=== PATIENT | male | born 1945 | race Caucasian/White ===

== ENCOUNTER 2019-12-06 10:02 | Inpatient (IN) | payer MEDICARE, BC ==
[~2019-12-06] VITALS: Ht 177.8 cm; Wt 86.7 kg
[2019-12-06] MEDS ORDERED: MULT-594 PO (10:38)
[2019-12-06] MEDS ORDERED: OMEG1000 PO (10:38)
[2019-12-06] MEDS ORDERED: CLOP75TA15 PO (10:38)
[2019-12-06] MEDS ORDERED: SODI454P4 PO (10:38)
[2019-12-06] MEDS ORDERED: FINA5TAB11 PO (10:38)
[2019-12-06] MEDS ORDERED: DIVA500T2 PO ×2 (10:38)
[2019-12-06] MEDS ORDERED: PANT40TA2 PO (10:38)
[2019-12-06] MEDS ORDERED: BUPR-319 PO (10:38)
[2019-12-06] MEDS ORDERED: ALFU10TA10 PO (10:38)
[2019-12-06] MEDS ORDERED: ATEN25TA PO (10:38)
[2019-12-06] MEDS ORDERED: TADA5TAB2 PO (10:38)
[2019-12-06] MEDS ORDERED: PRAV40TA3 PO (10:38)
[2019-12-06] MEDS ORDERED: ACETAMINOPHEN 325 MG TABLET PO ONE (11:15)
[2019-12-06 11:23] LABS: BASOPHILS % (AUTO) 0.4 % (0.0-2.0); EOSINOPHILS % (AUTO) 0.2 % (0.0-7.0); HEMOGLOBIN 7.8 g/dL (12.5-16.3); LYMPHOCYTES # (AUTO) 1.2 K/uL (20.0-40.0); LYMPHOCYTES % (AUTO) 12.7 % (20.5-51.5); MEAN CORPUSCULAR HEMOGLOBIN 31.2 uug (23.8-33.4); MEAN CORPUSCULAR HGB CONC 34 g/dL (32.5-36.3); MEAN CORPUSCULAR VOLUME 92.3 fL (73.0-96.2); MONOCYTES # (AUTO) 1.6 K/uL (2.0-10.0); NEUTROPHILS # (AUTO) 6.9 K/uL (1.8-8.9); NEUTROPHILS % (AUTO) 70.7 % (38.5-71.5); PLATELET COUNT (AUTO) 384 K/uL (152-348); WHITE BLOOD COUNT (AUTO) 9.7 K/uL (3.6-10.2)
[2019-12-06 11:25] LABS: RED BLOOD CELL COUNT(AUTO) 2.49 MIL/uL (4.06-5.63)
[2019-12-06 11:26] LABS: CARBON DIOXIDE 27 mmol/L (21-32); CHLORIDE 107 mmol/L (98-107); CREATININE 3.7 mg/dL (0.6-1.3); GLUCOSE 78 mg/dL (74-106); POTASSIUM 5.3 mmol/L (3.5-5.1); UREA NITROGEN, BLOOD 49 mg/dL (7-18)
[2019-12-06 11:32] LABS: ALANINE AMINOTRANSFERASE 49 U/L (16-63); ALKALINE PHOSPHATASE 139 U/L (50-136); ASPARTATE AMINOTRANSFERASE 64 U/L (15-37); BILIRUBIN,DIRECT 0.2 mg/dL (0.0-0.2); BILIRUBIN,TOTAL 0.7 mg/dL (0.2-1.0); TOTAL PROTEIN, SERUM 6.6 g/dL (6.4-8.2)
[2019-12-06 11:38] LABS: CREATINE KINASE, TOTAL 487 U/L (39-308)
[2019-12-06] MEDS ORDERED: NEOMY/BACITRA/POLYMYXIN B OINT UD PACKET TP ONE (12:10)
[2019-12-06] MEDS ORDERED: DEXTROSE 50% 50 ML DISP.SYRIN IV ONE (13:00)
[2019-12-06] MEDS ORDERED: INSULIN REGULAR, HUMAN 300 UNIT/3 ML VIAL IV ONE (13:00)
[2019-12-06] MEDS ORDERED: CALCIUM GLUCONATE IV 1 GM in IV DEXTROSE 5% 50 ML IV ONE (13:00)
[2019-12-06] MEDS ORDERED: TDAP DIPH,PERTUSS,TET VAC/PF 0.5 ML DISP.SYRIN IM ONE (13:15)
[2019-12-06 13:46] LABS: *BILIRUBIN,URIN NEGATIVE (NEGATIVE); *CLARITY,URINE CLEAR (CLEAR); *COLOR,URINE YELLOW (YELLOW); *KETONES,URINE NEGATIVE (NEGATIVE); LEUKOCYTE ESTERASE ,URINE NEGATIVE (NEGATIVE); NITRITE, URINE NEGATIVE (NEGATIVE); UGLUCOSE NEGATIVE (NEGATIVE)
[2019-12-06 13:49] LABS: *BLOOD, URINE TRACE (NEGATIVE)
[2019-12-06 15:02] VITALS: BP 148/64
[2019-12-06 15:15] LABS: BACTERIA,URINE NONE SEEN /HPF (NONE SEEN); SQUAMOUS EPITHELIAL CELL,UR FEW /HPF (NONE SEEN)
[2019-12-06] MEDS ORDERED: HYDROCODONE/APAP 5-325MG TABLET PO PRN (16:15)
[2019-12-06] MEDS ORDERED: ONDANSETRON 4 MG/2 ML VIAL IV PRN (16:15)
[2019-12-06] MEDS ORDERED: ZOLPIDEM 5 MG TABLET PO PRN (16:15)
[2019-12-06] MEDS ORDERED: ACETAMINOPHEN 325 MG TABLET PO PRN (16:15)
[2019-12-06] MEDS ORDERED: Z GUARD REMEDY PASTE 57 GM TUBE TOP PRN (16:15)
[2019-12-06] MEDS ORDERED: MAGNESIUM HYDROXIDE 30 ML LIQUID UDC PO PRN (16:15)
[2019-12-06 17:50] LABS: BAND % (MANUAL) 5 % (0-10); LYMPHOCYTES % (MANUAL) 15 % (20-40); NEUTROPHILS % (MANUAL) 66 % (42-75)
[2019-12-06 17:51] LABS: EOSINOPHILS % (MANUAL) 1 % (0-8); MONOCYTES % (MANUAL) 13 % (2-10)
[2019-12-06] MEDS: DIVALPROEX 250 MG TABLET.DR PO SCH (20:07)
[2019-12-06] MEDS: ATORVASTATIN 10 MG TABLET PO SCH (20:07)
[2019-12-06 20:12] VITALS: BP 122/65
[2019-12-07 00:03] VITALS: BP 124/60
[2019-12-07 04:12] VITALS: BP 138/64
[2019-12-07 06:49] LABS: BASOPHILS % (AUTO) 0.2 % (0.0-2.0); EOSINOPHILS # (AUTO) 0.1 K/uL (0.0-0.7); EOSINOPHILS % (AUTO) 0.9 % (0.0-7.0); HEMATOCRIT 21.7 % (36.7-47.1); LYMPHOCYTES # (AUTO) 1.6 K/uL (20.0-40.0); LYMPHOCYTES % (AUTO) 18.5 % (20.5-51.5); MEAN CORPUSCULAR HGB CONC 33 g/dL (32.5-36.3); MEAN CORPUSCULAR VOLUME 92.9 fL (73.0-96.2); MONOCYTES # (AUTO) 1.2 K/uL (2.0-10.0); MONOCYTES % (AUTO) 14.3 % (0.0-11.0); NEUTROPHILS # (AUTO) 5.6 K/uL (1.8-8.9); NEUTROPHILS % (AUTO) 66.1 % (38.5-71.5); PLATELET COUNT (AUTO) 395 K/uL (152-348); WHITE BLOOD COUNT (AUTO) 8.5 K/uL (3.6-10.2)
[2019-12-07 07:02] LABS: IRON, SERUM 28 ug/dL (50-175)
[2019-12-07 07:20] LABS: CARBON DIOXIDE 27 mmol/L (21-32); CHLORIDE 109 mmol/L (98-107); CHOLESTEROL 98 mg/dL (<200); CREATININE 3.1 mg/dL (0.6-1.3); FERRITIN 193 ng/mL (26-388); GLUCOSE 79 mg/dL (74-106); HDL CHOLESTEROL 30 mg/dL (40-60); PHOSPHOROUS 3.9 mg/dL (2.5-4.9); POTASSIUM 5.1 mmol/L (3.5-5.1); TRIGLYCERIDES 176 MG/DL (30-150); UREA NITROGEN, BLOOD 49 mg/dL (7-18)
[2019-12-07 07:31] LABS: CREATINE KINASE, TOTAL 179 U/L (39-308)
[2019-12-07 07:52] LABS: ABG BASE EXCESS -2.7 mmol/L; ABG HCO3 21.2 mmol/L; ABG PCO2 33.1 mmHg (35.0-45.0); ABG PH 7.425 (7.350-7.450); ABG PO2 78.4 mmHg (75.0-100.0); ABG SITE LEFT RADIAL; ABG TOTAL HEMOGLOBIN 8.9 G/dL (13.5-18.0); COHb 1.2 % (0.5-1.5); MetHb 0.3 % (0.0-1.5); O2Hb 93.8 % (94.0-97.0); VENT MODE Room Air
[2019-12-07] MEDS: DIVALPROEX 500 MG TABLET.DR PO SCH (08:01)
[2019-12-07] MEDS: FINASTERIDE 5 MG TABLET PO SCH (08:01)
[2019-12-07] MEDS: ALFUZOSIN HCL 10 MG TAB.SR.24H PO SCH (08:01)
[2019-12-07] MEDS: PANTOPRAZOLE SODIUM 40 MG TABLET.DR PO SCH (08:01)
[2019-12-07] MEDS: ATENOLOL 25 MG TABLET PO SCH (08:01)
[2019-12-07] MEDS: buPROPion XL 150 MG TAB.SR.24H PO SCH (08:01)
[2019-12-07 08:14] LABS: HEMOGLOBIN 7.2 g/dL (12.5-16.3); RED BLOOD CELL COUNT(AUTO) 2.34 MIL/uL (4.06-5.63)
[2019-12-07] MEDS ORDERED: Medication Not On Formulary EA (Tadalafil (Cialis) 5 MG) PO SCH (09:00)
[2019-12-07 11:29] VITALS: BP 118/57
[2019-12-07 12:09] LABS: *BILIRUBIN,URIN NEGATIVE (NEGATIVE); *CLARITY,URINE SLIGHTLY CLOUDY (CLEAR); *COLOR,URINE YELLOW (YELLOW); *KETONES,URINE NEGATIVE (NEGATIVE); LEUKOCYTE ESTERASE ,URINE NEGATIVE (NEGATIVE); NITRITE, URINE NEGATIVE (NEGATIVE); UGLUCOSE NEGATIVE (NEGATIVE)
[2019-12-07 12:14] LABS: *BLOOD, URINE TRACE (NEGATIVE)
[2019-12-07 12:29] LABS: *CREATININE,URINE 68.7 mg/dL (30-125); *URINE TOTAL PROTEIN RANDOM 48.1 mg/dL (<150/24HR)
[2019-12-07] MEDS: SOD FERRIC GLUC COMPLX/SUCROSE 125 MG in IV NORMAL SALINE 100 ML IV SCH (13:06)
[2019-12-07 15:08] VITALS: BP 116/54
[2019-12-07 18:15] LABS: BACTERIA,URINE NONE SEEN /HPF (NONE SEEN); SQUAMOUS EPITHELIAL CELL,UR FEW /HPF (NONE SEEN); WBC,URINE 0-3 /HPF (0-3)
[2019-12-07 18:16] LABS: URINE AMORPHOUS URATE FEW /HPF
[2019-12-07 20:12] VITALS: BP 115/45
[2019-12-07] MEDS: ATORVASTATIN 10 MG TABLET PO SCH (20:45)
[2019-12-07] MEDS: DIVALPROEX 250 MG TABLET.DR PO SCH (20:45)
[2019-12-08 04:06] VITALS: BP 136/57
[2019-12-08 07:53] LABS: BASOPHILS % (AUTO) 0.4 % (0.0-2.0); EOSINOPHILS # (AUTO) 0.1 K/uL (0.0-0.7); EOSINOPHILS % (AUTO) 1.1 % (0.0-7.0); HEMATOCRIT 23.5 % (36.7-47.1); HEMOGLOBIN 7.8 g/dL (12.5-16.3); LYMPHOCYTES # (AUTO) 1.8 K/uL (20.0-40.0); LYMPHOCYTES % (AUTO) 18.8 % (20.5-51.5); MEAN CORPUSCULAR HEMOGLOBIN 30.9 uug (23.8-33.4); MEAN CORPUSCULAR HGB CONC 33 g/dL (32.5-36.3); MEAN CORPUSCULAR VOLUME 93.4 fL (73.0-96.2); MONOCYTES # (AUTO) 1.5 K/uL (2.0-10.0); MONOCYTES % (AUTO) 15.2 % (0.0-11.0); NEUTROPHILS # (AUTO) 6.3 K/uL (1.8-8.9); NEUTROPHILS % (AUTO) 64.5 % (38.5-71.5); PLATELET COUNT (AUTO) 442 K/uL (152-348); RED BLOOD CELL COUNT(AUTO) 2.51 MIL/uL (4.06-5.63); WHITE BLOOD COUNT (AUTO) 9.8 K/uL (3.6-10.2)
[2019-12-08] MEDS: DIVALPROEX 500 MG TABLET.DR PO SCH (08:57)
[2019-12-08] MEDS: PANTOPRAZOLE SODIUM 40 MG TABLET.DR PO SCH (08:57)
[2019-12-08] MEDS: ALFUZOSIN HCL 10 MG TAB.SR.24H PO SCH (08:57)
[2019-12-08] MEDS: buPROPion XL 150 MG TAB.SR.24H PO SCH (08:58)
[2019-12-08] MEDS: FOLIC ACID 1 MG TABLET PO SCH (08:58)
[2019-12-08] MEDS: ATENOLOL 25 MG TABLET PO SCH (09:00)
[2019-12-08] MEDS: FINASTERIDE 5 MG TABLET PO SCH (09:00)
[2019-12-08 09:09] LABS: ALANINE AMINOTRANSFERASE 52 U/L (16-63); ALKALINE PHOSPHATASE 141 U/L (50-136); ASPARTATE AMINOTRANSFERASE 39 U/L (15-37); BILIRUBIN,TOTAL 0.5 mg/dL (0.2-1.0); CARBON DIOXIDE 25 mmol/L (21-32); CHLORIDE 107 mmol/L (98-107); CREATININE 2.9 mg/dL (0.6-1.3); FERRITIN 301 ng/mL (26-388); GLUCOSE 85 mg/dL (74-106); MAGNESIUM 2.2 mg/dL (1.8-2.4); PHOSPHOROUS 3.5 mg/dL (2.5-4.9); TOTAL PROTEIN, SERUM 6.3 g/dL (6.4-8.2); UREA NITROGEN, BLOOD 50 mg/dL (7-18)
[2019-12-08 12:00] VITALS: BP 114/34
[2019-12-08] MEDS: SOD FERRIC GLUC COMPLX/SUCROSE 125 MG in IV NORMAL SALINE 100 ML IV SCH (15:02)
[2019-12-08 16:02] LABS: NEUTROPHILS % (MANUAL) 69 % (42-75)
[2019-12-08 16:03] LABS: BASOPHILS % (MANUAL) 0 % (0-2); EOSINOPHILS % (MANUAL) 1 % (0-8); LYMPHOCYTES % (MANUAL) 13 % (20-40); MONOCYTES % (MANUAL) 17 % (2-10)
[2019-12-08 16:05] VITALS: BP 124/74
[2019-12-08 20:26] VITALS: BP 143/62
[2019-12-08] MEDS: DIVALPROEX 250 MG TABLET.DR PO SCH (20:30)
[2019-12-08] MEDS: ATORVASTATIN 10 MG TABLET PO SCH (20:30)
[2019-12-09 04:40] VITALS: BP 107/88
[2019-12-09 08:00] VITALS: BP 150/44
[2019-12-09] MEDS: ALFUZOSIN HCL 10 MG TAB.SR.24H PO SCH (08:09)
[2019-12-09] MEDS: DIVALPROEX 500 MG TABLET.DR PO SCH (08:09)
[2019-12-09] MEDS: FOLIC ACID 1 MG TABLET PO SCH (08:09)
[2019-12-09] MEDS: buPROPion XL 150 MG TAB.SR.24H PO SCH (08:09)
[2019-12-09] MEDS: FINASTERIDE 5 MG TABLET PO SCH (08:09)
[2019-12-09] MEDS: PANTOPRAZOLE SODIUM 40 MG TABLET.DR PO SCH (08:09)
[2019-12-09] MEDS: ATENOLOL 25 MG TABLET PO SCH (08:10)
[2019-12-09 11:15] LABS: *OCCULT BLOOD STOOL NEGATIVE (NEGATIVE)
[2019-12-09] MEDS: SOD FERRIC GLUC COMPLX/SUCROSE 125 MG in IV NORMAL SALINE 100 ML IV SCH (13:59)
[2019-12-09 15:54] VITALS: BP 122/49
[2019-12-09 20:03] VITALS: BP 133/57
[2019-12-09] MEDS: DIVALPROEX 250 MG TABLET.DR PO SCH (20:16)
[2019-12-09] MEDS: ATORVASTATIN 10 MG TABLET PO SCH (20:17)
[2019-12-10 04:50] VITALS: BP 149/66
[2019-12-10 06:56] LABS: BASOPHILS # (AUTO) 0.1 K/uL (0.0-8.0); BASOPHILS % (AUTO) 0.6 % (0.0-2.0); EOSINOPHILS # (AUTO) 0.1 K/uL (0.0-0.7); EOSINOPHILS % (AUTO) 1.1 % (0.0-7.0); HEMATOCRIT 24.1 % (36.7-47.1); HEMOGLOBIN 7.8 g/dL (12.5-16.3); LYMPHOCYTES # (AUTO) 1.9 K/uL (20.0-40.0); LYMPHOCYTES % (AUTO) 16.9 % (20.5-51.5); MEAN CORPUSCULAR HEMOGLOBIN 30.5 uug (23.8-33.4); MEAN CORPUSCULAR HGB CONC 33 g/dL (32.5-36.3); MEAN CORPUSCULAR VOLUME 93.7 fL (73.0-96.2); MONOCYTES # (AUTO) 1.2 K/uL (2.0-10.0); MONOCYTES % (AUTO) 11.1 % (0.0-11.0); NEUTROPHILS # (AUTO) 7.9 K/uL (1.8-8.9); NEUTROPHILS % (AUTO) 70.3 % (38.5-71.5); PLATELET COUNT (AUTO) 520 K/uL (152-348); RED BLOOD CELL COUNT(AUTO) 2.58 MIL/uL (4.06-5.63); WHITE BLOOD COUNT (AUTO) 11.2 K/uL (3.6-10.2)
[2019-12-10 07:12] LABS: CARBON DIOXIDE 24 mmol/L (21-32); CHLORIDE 108 mmol/L (98-107); CREATININE 2.8 mg/dL (0.6-1.3); GLUCOSE 78 mg/dL (74-106); PHOSPHOROUS 4.3 mg/dL (2.5-4.9); POTASSIUM 5.4 mmol/L (3.5-5.1); UREA NITROGEN, BLOOD 53 mg/dL (7-18)
[2019-12-10 08:11] LABS: *IMMUNOGLOBULIN G, SERUM 531 mg/dL (603-1613); IMMUNOGLOBULIN A, SERUM 127 mg/dL (61-437); IMMUNOGLOBULIN M, SERUM 79 mg/dL (15-143)
[2019-12-10] MEDS: FINASTERIDE 5 MG TABLET PO SCH (08:18)
[2019-12-10] MEDS: FOLIC ACID 1 MG TABLET PO SCH (08:18)
[2019-12-10] MEDS: DIVALPROEX 500 MG TABLET.DR PO SCH (08:19)
[2019-12-10] MEDS: buPROPion XL 150 MG TAB.SR.24H PO SCH (08:25)
[2019-12-10] MEDS: ATENOLOL 25 MG TABLET PO SCH (08:25)
[2019-12-10] MEDS: PANTOPRAZOLE SODIUM 40 MG TABLET.DR PO SCH (08:26)
[2019-12-10] MEDS: ALFUZOSIN HCL 10 MG TAB.SR.24H PO SCH (08:28)
[2019-12-10] MEDS ORDERED: LIDOCAINE HCL 1% 20 ML VIAL ONE (08:50)
[2019-12-10] MEDS ORDERED: NALOXONE 2 MG/2 ML SYRINGE IV PRN (09:30)
[2019-12-10] MEDS ORDERED: FENTANYL CITRATE 100 MCG/2 ML AMPUL IV PRN (09:30)
[2019-12-10] MEDS ORDERED: MIDAZOLAM HCL 2 MG/2 ML VIAL IV PRN (09:30)
[2019-12-10 13:00] VITALS: BP 133/60
[2019-12-10] MEDS: SOD FERRIC GLUC COMPLX/SUCROSE 125 MG in IV NORMAL SALINE 100 ML IV SCH (13:56)
[2019-12-10] MEDS: NEPRO (VANILLA) 237 ML CAN PO SCH (16:46)
[2019-12-10 20:00] VITALS: BP 109/50
[2019-12-10] MEDS: DIVALPROEX 250 MG TABLET.DR PO SCH (20:40)
[2019-12-10] MEDS: ATORVASTATIN 10 MG TABLET PO SCH (20:40)
[2019-12-11 04:00] VITALS: BP 114/53
[2019-12-11 07:07] LABS: A/G RATIO 0.8 (0.7-1.7); ALBUMIN 2.4 g/dL (2.9-4.4); ALPHA-1-GLOBULIN 0.6 g/dL (0.0-0.4); ALPHA-2-GLOBULIN 1.1 g/dL (0.4-1.0); GAMMA GLOBULIN 0.4 g/dL (0.4-1.8); M-SPIKE Not Observed g/dL (Not Observed)
[2019-12-11 07:30] VITALS: BP 126/60
[2019-12-11 08:06] LABS: A/G RATIO 0.7 (0.7-1.7); ALBUMIN 2.3 g/dL (2.9-4.4); ALPHA-1-GLOBULIN 0.4 g/dL (0.0-0.4); ALPHA-2-GLOBULIN 1.1 g/dL (0.4-1.0); BETA GLOBULIN 1.2 g/dL (0.7-1.3); GAMMA GLOBULIN 0.5 g/dL (0.4-1.8); GLOBULIN, TOTAL 3.2 g/dL (2.2-3.9); M-SPIKE Not Observed g/dL (Not Observed)
[2019-12-11 08:13] LABS: ALANINE AMINOTRANSFERASE 42 U/L (16-63); ALKALINE PHOSPHATASE 176 U/L (50-136); ASPARTATE AMINOTRANSFERASE 32 U/L (15-37); BILIRUBIN,TOTAL 0.5 mg/dL (0.2-1.0); CARBON DIOXIDE 24 mmol/L (21-32); CHLORIDE 109 mmol/L (98-107); CREATININE 2.8 mg/dL (0.6-1.3); GLUCOSE 75 mg/dL (74-106); MAGNESIUM 2.2 mg/dL (1.8-2.4); PHOSPHOROUS 4.9 mg/dL (2.5-4.9); POTASSIUM 5.5 mmol/L (3.5-5.1); TOTAL PROTEIN, SERUM 5.9 g/dL (6.4-8.2); UREA NITROGEN, BLOOD 61 mg/dL (7-18)
[2019-12-11 08:16] LABS: BASOPHILS % (AUTO) 0.2 % (0.0-2.0); EOSINOPHILS # (AUTO) 0.2 K/uL (0.0-0.7); EOSINOPHILS % (AUTO) 1.4 % (0.0-7.0); HEMATOCRIT 23.4 % (36.7-47.1); HEMOGLOBIN 7.6 g/dL (12.5-16.3); LYMPHOCYTES # (AUTO) 2.2 K/uL (20.0-40.0); MEAN CORPUSCULAR HEMOGLOBIN 30.8 uug (23.8-33.4); MEAN CORPUSCULAR HGB CONC 33 g/dL (32.5-36.3); MEAN CORPUSCULAR VOLUME 94.6 fL (73.0-96.2); MONOCYTES # (AUTO) 1.4 K/uL (2.0-10.0); MONOCYTES % (AUTO) 11.9 % (0.0-11.0); NEUTROPHILS # (AUTO) 7.8 K/uL (1.8-8.9); NEUTROPHILS % (AUTO) 67.5 % (38.5-71.5); PLATELET COUNT (AUTO) 474 K/uL (152-348); WHITE BLOOD COUNT (AUTO) 11.6 K/uL (3.6-10.2)
[2019-12-11] MEDS: DIVALPROEX 500 MG TABLET.DR PO SCH (08:17)
[2019-12-11] MEDS: ALFUZOSIN HCL 10 MG TAB.SR.24H PO SCH (08:17)
[2019-12-11] MEDS: FINASTERIDE 5 MG TABLET PO SCH (08:17)
[2019-12-11] MEDS: buPROPion XL 150 MG TAB.SR.24H PO SCH (08:18)
[2019-12-11] MEDS: ATENOLOL 25 MG TABLET PO SCH (08:18)
[2019-12-11] MEDS: FOLIC ACID 1 MG TABLET PO SCH (08:18)
[2019-12-11] MEDS: PANTOPRAZOLE SODIUM 40 MG TABLET.DR PO SCH (08:18)
[2019-12-11] MEDS: NEPRO (VANILLA) 237 ML CAN PO SCH ×2 (08:18→15:56)
[2019-12-11 08:40] LABS: RED BLOOD CELL COUNT(AUTO) 2.47 MIL/uL (4.06-5.63)
[2019-12-11] MEDS ORDERED: SODIUM POLYSTYRENE SULFONATE 15 G/60 ML LIQUID UDC PO ONE (12:30)
[2019-12-11] MEDS: SOD FERRIC GLUC COMPLX/SUCROSE 125 MG in IV NORMAL SALINE 100 ML IV SCH (13:52)
[2019-12-11] MEDS ORDERED: Nepro PO (15:09)
[2019-12-11] MEDS ORDERED: ZOLP5TAB8 PO (15:09)
[2019-12-11] MEDS ORDERED: MENT71OI TOP (15:09)
[2019-12-11] MEDS ORDERED: Folic Acid PO (15:09)
[2019-12-11 15:53] VITALS: BP 121/50
== END 2019-12-11 21:03 | DRG 180 ==
LOC: ER 10:02 → TELE3 14:04 → MEDSURG3 12-07 17:36
PROVIDERS: ADMIT Internal Medicine; ATTEND Internal Medicine
PROC: 0BDC4ZX Extraction of Right Upper Lung Lobe, Percutaneous Endoscopic Approach, Diagnostic (ICD-10-PCS; principal; 2019-12-10)
DX: C34.11 Malignant neoplasm of upper lobe, right bronchus or lung (principal); E43 Unspecified severe protein-calorie malnutrition; G92 Toxic encephalopathy; N17.0 Acute kidney failure with tubular necrosis; S37.012A Minor contusion of left kidney, initial encounter; K92.2 Gastrointestinal hemorrhage, unspecified; F17.210 Nicotine dependence, cigarettes, uncomplicated; E78.5 Hyperlipidemia, unspecified; E87.5 Hyperkalemia; F39 Unspecified mood [affective] disorder; I67.2 Cerebral atherosclerosis; I73.9 Peripheral vascular disease, unspecified; J44.9 Chronic obstructive pulmonary disease, unspecified; M19.90 Unspecified osteoarthritis, unspecified site; M20.42 Other hammer toe(s) (acquired), left foot; M20.41 Other hammer toe(s) (acquired), right foot; N18.9 Chronic kidney disease, unspecified; W19.XXXA Unspecified fall, initial encounter; Y93.9 Activity, unspecified; R74.0 Nonspecific elevation of levels of transaminase and lactic acid dehydrogenase [LDH]; N40.0 Benign prostatic hyperplasia without lower urinary tract symptoms; E66.9 Obesity, unspecified; Z68.27 Body mass index [BMI] 27.0-27.9, adult; S81.812A Laceration without foreign body, left lower leg, initial encounter; I12.9 Hypertensive chronic kidney disease with stage 1 through stage 4 chronic kidney disease, or unspecified chronic kidney disease; R19.5 Other fecal abnormalities; Z87.820 Personal history of traumatic brain injury; M84.48XS Pathological fracture, other site, sequela; M51.36 Other intervertebral disc degeneration, lumbar region; D50.0 Iron deficiency anemia secondary to blood loss (chronic); D63.1 Anemia in chronic kidney disease; Y92.89 Other specified places as the place of occurrence of the external cause; R29.6 Repeated falls
CPT/HCPCS: 36415; 36600; 70030-TC; 70450; 71045; 71250; 72125; 73020; 76770; 82784; 82803; 83550; 83735; 83970; 84100; 84155; 84156; 84165; 84300; 84443; 85025; 85730; 86334; 86850; 86900; 86901; 88329-TC; 88341; 88342; 90715; 93307; A4663; C1758; G0378; J0610; J1815; J2250; J2310; J2916; J3010; J3490; J7050; J7060; J8499

== ENCOUNTER 2019-12-11 21:11 | Inpatient (IN) | payer MEDICARE, BC ==
[~2019-12-11] VITALS: Ht 177.8 cm; Wt 84.5 kg
--- NOTE | 2019-12-11 20:00 | NUR ---
Admitted @ beginning of shift from med surg a 74 yr old male with admitting diagnosis s/p mechanical fall. V/S stable on room air saturating @ 98%. Pt received in bed asleep, easily arousalable AOx3-4, forgetful. No s/s of distress or SOB noted. Denied SOB or distress at this time. Denies any pain or discomfort. Admitting orders complete, Dr. Shearer and contact lens blocker and cutter doctor notified for admitting orders and med recon. Noted to have some L elbow laceration, L lower leg wound/laceration, L. hand scab.All needs attended to promptly. Safety measures in place. Call light within reach. Bed low and locked in position. Bed alarm on. Will continue with the plan of care. will continue rehab plan of care.
[~2019-12-11 21:11] MED LIST: ALFU10TA10 PO; ATEN25TA PO; BUPR-319 PO; CLOP75TA15 PO; DIVA500T2 PO; FINA5TAB11 PO; Folic Acid PO; MENT71OI TOP; MULT-594 PO; Nepro PO; OMEG1000 PO; PANT40TA2 PO; PRAV40TA3 PO; SODI454P4 PO; TADA5TAB2 PO; ZOLP5TAB8 PO
[2019-12-11 21:24] VITALS: BP 145/67
[2019-12-11] MEDS ORDERED: Z GUARD REMEDY PASTE 57 GM TUBE TOP PRN ×2 (22:15→23:30)
[2019-12-11] MEDS ORDERED: ZOLPIDEM 5 MG TABLET PO PRN (23:30)
[2019-12-12 04:51] VITALS: BP 145/70
--- NOTE | 2019-12-12 06:33 | NUR ---
Pt in bed asleep AOx2, on RA denied SOB or distress at this time. wound care and Dressings on wounds in place, pictures taken and placed in chart. Denied any pain at this time. Safety precautions in place. Bed locked in lowest position with siderails 2x up. Call light and phone within reach. will endorse report to oncoming nurse.
[2019-12-12 08:00] VITALS: BP 129/70
[2019-12-12] MEDS: OMEGA-3 FATTY ACIDS/FISH OIL CAPSULE PO SCH (08:57)
[2019-12-12] MEDS: FINASTERIDE 5 MG TABLET PO SCH (08:57)
[2019-12-12] MEDS: CLOPIDOGREL 75 MG TABLET PO SCH (08:57)
[2019-12-12] MEDS: DIVALPROEX 500 MG TABLET.DR PO SCH (08:57)
[2019-12-12] MEDS: PANTOPRAZOLE SODIUM 40 MG TABLET.DR PO SCH (09:00)
[2019-12-12] MEDS: buPROPion XL 150 MG TAB.SR.24H PO SCH (09:01)
[2019-12-12] MEDS: FOLIC ACID 1 MG TABLET PO SCH (09:01)
[2019-12-12] MEDS: MULTIVITAMINS,THERAPEUTIC TABLET PO SCH (09:01)
[2019-12-12] MEDS: ALFUZOSIN HCL 10 MG TAB.SR.24H PO SCH (09:01)
[2019-12-12] MEDS: NEPRO (VANILLA) 237 ML CAN PO SCH ×2 (09:01→17:48)
[2019-12-12] MEDS: ATENOLOL 25 MG TABLET PO SCH (09:05)
[2019-12-12 15:54] VITALS: BP 121/78
--- NOTE | 2019-12-12 18:03 | NUR ---
Patient started therapy for increase strenght and increase endurance. tolerated well. not in distress. Patient no complaint of pain/discomfort as of this time. will continue monitor
[2019-12-12 20:09] VITALS: BP 111/74
[2019-12-12 20:16] VITALS: BP 109/61
[2019-12-12] MEDS: DIVALPROEX 250 MG TABLET.DR PO SCH (20:32)
[2019-12-12] MEDS: ATORVASTATIN 10 MG TABLET PO SCH (20:34)
--- NOTE | 2019-12-12 22:01 | NUR ---
PATIENT IS IN BED, ALERT AND VERBALLY RESPONSIVE. AFEBRILE NO RESPIRATORY DISTRESS. NO COMPLAINTS OF PAIN. RECEIVED DUE MEDICATIONS. FALL AND SAFETY PRECAUTIONS OBSERVED.
[2019-12-13 04:52] VITALS: BP 133/55
--- NOTE | 2019-12-13 06:26 | NUR ---
NO CHANGES OBSERVED DURING THE NIGHT. PATIENT SLEPT WELL DURING THE NIGHT. ALL NEEDS ATTENDED AND ANTICIPATED. FALL AND SAFETY PRECAUTIONS OBSERVED.
[2019-12-13 06:46] LABS: BASOPHILS % (AUTO) 0.4 % (0.0-2.0); EOSINOPHILS # (AUTO) 0.2 K/uL (0.0-0.7); EOSINOPHILS % (AUTO) 1.4 % (0.0-7.0); HEMATOCRIT 25.4 % (36.7-47.1); HEMOGLOBIN 8.3 g/dL (12.5-16.3); LYMPHOCYTES # (AUTO) 2.5 K/uL (20.0-40.0); LYMPHOCYTES % (AUTO) 22.8 % (20.5-51.5); MEAN CORPUSCULAR HGB CONC 33 g/dL (32.5-36.3); MEAN CORPUSCULAR VOLUME 94.8 fL (73.0-96.2); MONOCYTES # (AUTO) 1.4 K/uL (2.0-10.0); MONOCYTES % (AUTO) 13.1 % (0.0-11.0); NEUTROPHILS # (AUTO) 6.7 K/uL (1.8-8.9); NEUTROPHILS % (AUTO) 62.3 % (38.5-71.5); PLATELET COUNT (AUTO) 445 K/uL (152-348); RED BLOOD CELL COUNT(AUTO) 2.68 MIL/uL (4.06-5.63); WHITE BLOOD COUNT (AUTO) 10.8 K/uL (3.6-10.2)
[2019-12-13 06:47] LABS: ALANINE AMINOTRANSFERASE 31 U/L (16-63); ALKALINE PHOSPHATASE 148 U/L (50-136); ASPARTATE AMINOTRANSFERASE 24 U/L (15-37); BILIRUBIN,TOTAL 0.4 mg/dL (0.2-1.0); CARBON DIOXIDE 23 mmol/L (21-32); CHLORIDE 109 mmol/L (98-107); CREATININE 2.5 mg/dL (0.6-1.3); GLUCOSE 85 mg/dL (74-106); PHOSPHOROUS 4.4 mg/dL (2.5-4.9); POTASSIUM 4.9 mmol/L (3.5-5.1); TOTAL PROTEIN, SERUM 5.9 g/dL (6.4-8.2); UREA NITROGEN, BLOOD 50 mg/dL (7-18)
[2019-12-13 08:00] VITALS: BP 151/63
[2019-12-13] MEDS: FINASTERIDE 5 MG TABLET PO SCH (08:44)
[2019-12-13] MEDS: OMEGA-3 FATTY ACIDS/FISH OIL CAPSULE PO SCH (08:44)
[2019-12-13] MEDS: CLOPIDOGREL 75 MG TABLET PO SCH (08:44)
[2019-12-13] MEDS: FOLIC ACID 1 MG TABLET PO SCH (08:44)
[2019-12-13] MEDS: DIVALPROEX 500 MG TABLET.DR PO SCH (08:45)
[2019-12-13] MEDS: ATENOLOL 25 MG TABLET PO SCH (08:45)
[2019-12-13] MEDS: MULTIVITAMINS,THERAPEUTIC TABLET PO SCH (08:45)
[2019-12-13] MEDS: ALFUZOSIN HCL 10 MG TAB.SR.24H PO SCH (08:45)
[2019-12-13] MEDS: PANTOPRAZOLE SODIUM 40 MG TABLET.DR PO SCH (08:45)
[2019-12-13] MEDS: buPROPion XL 150 MG TAB.SR.24H PO SCH (08:45)
[2019-12-13] MEDS: NEPRO (VANILLA) 237 ML CAN PO SCH ×2 (08:51→18:05)
[2019-12-13 15:16] VITALS: BP 117/65
--- NOTE | 2019-12-13 18:40 | NUR ---
Patient remains alert, oriented x 3, not in any form of distress, on room air. He denies any pain or discomfort. Patient compliant with medications and tolerated well. Assisted with his needs promptly. Patient participated with PT, OT and ST and tolerated. Call light and frequently used items placed within patient's reach. Patient stated he will tell his caregiver to bring his home medication Cialis. Will endorse accordingly.
[2019-12-13] MEDS: DIVALPROEX 250 MG TABLET.DR PO SCH (20:34)
[2019-12-13] MEDS: ATORVASTATIN 10 MG TABLET PO SCH (20:34)
[2019-12-13 21:09] VITALS: BP 126/64
--- NOTE | 2019-12-13 22:43 | NUR ---
Received resting in bed. AAO x3. No acute distress noted. Denies pain/ discomfort. Due meds given as ordered. Safety measures maintained. Call light and personal items within reach. Will continue to monitor.
[2019-12-14 05:38] VITALS: BP 117/68
[2019-12-14 07:28] LABS: FERRITIN 1207 ng/mL (26-388)
[2019-12-14 07:30] VITALS: BP 126/76
[2019-12-14 07:35] LABS: IRON, SERUM 23 ug/dL (50-175)
[2019-12-14] MEDS: ATENOLOL 25 MG TABLET PO SCH (09:00)
[2019-12-14] MEDS: FINASTERIDE 5 MG TABLET PO SCH (09:03)
[2019-12-14] MEDS: MULTIVITAMINS,THERAPEUTIC TABLET PO SCH (09:03)
[2019-12-14] MEDS: FOLIC ACID 1 MG TABLET PO SCH (09:03)
[2019-12-14] MEDS: PANTOPRAZOLE SODIUM 40 MG TABLET.DR PO SCH (09:03)
[2019-12-14] MEDS: DIVALPROEX 500 MG TABLET.DR PO SCH (09:03)
[2019-12-14] MEDS: buPROPion XL 150 MG TAB.SR.24H PO SCH (09:04)
[2019-12-14] MEDS: CLOPIDOGREL 75 MG TABLET PO SCH (09:04)
[2019-12-14] MEDS: ALFUZOSIN HCL 10 MG TAB.SR.24H PO SCH (09:04)
[2019-12-14] MEDS: OMEGA-3 FATTY ACIDS/FISH OIL CAPSULE PO SCH (09:04)
[2019-12-14] MEDS: NEPRO (VANILLA) 237 ML CAN PO SCH ×2 (09:20→17:30)
--- NOTE | 2019-12-14 11:54 | NUR ---
WOUND CARE CONSULT: PT PRESENTS WITH LEFT ARM SKIN TEAR AND LEFT LOWER LEG WOUND, PRESENT ON ADMISSION. RECOMMENDATIONS MADE FOR SKIN PROTECTION AND WOUND CARE OF ARM WOUND. RECOMMEND DPM CONSULT FOR LOWER LEG WOUND. DR BHATT NOTIFIED OF CONSULT REQUEST. CURRENT VALE SCORE IS 17. WILL SEE PRN. ALCOCER IN AGREEMENT WITH PLAN OF CARE. Addendum: 12/14/19 at 1155 by ОЛЬГА KONG RN Amended: Links added.
--- NOTE | 2019-12-14 13:22 | NUR ---
INTERDISCIPLINARY TEAM CONFERENCE
--- NOTE | 2019-12-14 14:28 | NUR ---
INDIVIDUALIZED PLAN OF CARE
[2019-12-14 15:48] VITALS: BP 107/59
[2019-12-14] MEDS: ATORVASTATIN 10 MG TABLET PO SCH (20:11)
[2019-12-14] MEDS: DIVALPROEX 250 MG TABLET.DR PO SCH (20:11)
[2019-12-14 21:07] VITALS: BP 116/59
[2019-12-15 05:12] VITALS: BP 138/60
[2019-12-15 08:00] VITALS: BP 140/65
[2019-12-15] MEDS: OMEGA-3 FATTY ACIDS/FISH OIL CAPSULE PO SCH (09:39)
[2019-12-15] MEDS: PANTOPRAZOLE SODIUM 40 MG TABLET.DR PO SCH (09:39)
[2019-12-15] MEDS: FOLIC ACID 1 MG TABLET PO SCH (09:39)
[2019-12-15] MEDS: MULTIVITAMINS,THERAPEUTIC TABLET PO SCH (09:39)
[2019-12-15] MEDS: CLOPIDOGREL 75 MG TABLET PO SCH (09:39)
[2019-12-15] MEDS: DIVALPROEX 500 MG TABLET.DR PO SCH (09:39)
[2019-12-15] MEDS: FINASTERIDE 5 MG TABLET PO SCH (09:40)
[2019-12-15] MEDS: buPROPion XL 150 MG TAB.SR.24H PO SCH (09:40)
[2019-12-15] MEDS: ATENOLOL 25 MG TABLET PO SCH (09:40)
[2019-12-15] MEDS: ALFUZOSIN HCL 10 MG TAB.SR.24H PO SCH (09:40)
[2019-12-15] MEDS: TADALAFIL 5 MG PO SCH (09:41)
[2019-12-15] MEDS: NEPRO (VANILLA) 237 ML CAN PO SCH ×2 (09:41→18:06)
--- NOTE | 2019-12-15 10:30 | NUR ---
Patient received in bed, AAO x 2-3. No acute distress noted. NO complains of pain during shift. Patient noted with a temp of 100 at the start of the shift. Cooling measures applied. Rechecked temp and 99.6. All due medications administered as ordered and scheduled and tolerate well. Patient on PT/OT therapy as outlined. Skin kept clean and dry. Needs attended, safety measures in place and will continue with care.
--- NOTE | 2019-12-15 11:10 | NUR ---
Temp. of 98.8. NO acute distress and will continue with care.
[2019-12-15 15:14] VITALS: BP 112/66
--- NOTE | 2019-12-15 18:58 | NUR ---
Patient in bed at this time resting comfortably. No acute distress noted. Vital signs stable. afebrile. Patient noted with poor appetite and encouraged to eat during shift. Skin kept clean and dry. Needs attended, safety measures in place and will continue with care.
[2019-12-15 20:00] VITALS: BP 120/61
[2019-12-15] MEDS: ATORVASTATIN 10 MG TABLET PO SCH (21:26)
[2019-12-15] MEDS: DIVALPROEX 250 MG TABLET.DR PO SCH (21:26)
--- NOTE | 2019-12-15 22:45 | NUR ---
Received resting in bed sleeping, patient is very drowsy and exhausted. AAO x2-3. No acute distress noted, no SOB noted. Denies pain/ discomfort at this time. Due medications administered as ordered. All needs attended to promptly, and kept comfortable. Safety measures maintained. Call light and personal items within reach. Will continue to monitor.
[2019-12-16 04:00] VITALS: BP 120/58
[2019-12-16 08:00] VITALS: BP 107/55
[2019-12-16] MEDS: FOLIC ACID 1 MG TABLET PO SCH (08:50)
[2019-12-16] MEDS: DIVALPROEX 500 MG TABLET.DR PO SCH (08:50)
[2019-12-16] MEDS: OMEGA-3 FATTY ACIDS/FISH OIL CAPSULE PO SCH (08:50)
[2019-12-16] MEDS: buPROPion XL 150 MG TAB.SR.24H PO SCH (08:51)
[2019-12-16] MEDS: TADALAFIL 5 MG PO SCH (08:51)
[2019-12-16] MEDS: CLOPIDOGREL 75 MG TABLET PO SCH (08:51)
[2019-12-16] MEDS: ALFUZOSIN HCL 10 MG TAB.SR.24H PO SCH (08:51)
[2019-12-16] MEDS: FINASTERIDE 5 MG TABLET PO SCH (08:51)
[2019-12-16] MEDS: MULTIVITAMINS,THERAPEUTIC TABLET PO SCH (08:51)
[2019-12-16] MEDS: PANTOPRAZOLE SODIUM 40 MG TABLET.DR PO SCH (08:56)
[2019-12-16] MEDS: ATENOLOL 25 MG TABLET PO SCH (08:59)
[2019-12-16] MEDS: NEPRO (VANILLA) 237 ML CAN PO SCH ×2 (09:31→17:28)
[2019-12-16 16:14] VITALS: BP 111/56
--- NOTE | 2019-12-16 16:21 | NUR ---
Pt received resting in bed, assessed, AAOx2-3, no acute distress, VSS, and no SOB, slight chronic cough present. Pt compliant with routinely scheduled medications. Pt able to make needs known. Pt denies pain at this time. All comfort and safety measures implemented. Call light placed within reach. Will continue to monitor safety.
--- NOTE | 2019-12-16 19:41 | NUR ---
Received resting in bed, speaking with family member, AAO x3, forgetful. No acute distress noted. Denies pain/ discomfort. Safety measures maintained. Call light and personal items within reach. Will continue to monitor.
[2019-12-16 20:07] VITALS: BP 108/52
[2019-12-16] MEDS: DIVALPROEX 250 MG TABLET.DR PO SCH (20:24)
[2019-12-16] MEDS: ATORVASTATIN 10 MG TABLET PO SCH (20:24)
--- NOTE | 2019-12-16 21:18 | NUR ---
Denies pain/ discomfort at this time. Temperature 99.1 cooling measures completed, blankets off. Temperature down to 97.7. Resting comfortable watching TV. Due medications administered as ordered. All needs attended to promptly. Wound acre completed. Safety measures maintained. Call light and personal items within reach. Will continue to monitor through the night.
[2019-12-17 05:47] VITALS: BP 125/69
[2019-12-17 08:00] VITALS: BP 121/53
[2019-12-17 08:19] LABS: BASOPHILS % (AUTO) 0.5 % (0.0-2.0); EOSINOPHILS # (AUTO) 0.1 K/uL (0.0-0.7); EOSINOPHILS % (AUTO) 1.5 % (0.0-7.0); HEMATOCRIT 25.3 % (36.7-47.1); HEMOGLOBIN 8.3 g/dL (12.5-16.3); LYMPHOCYTES # (AUTO) 1.7 K/uL (20.0-40.0); MEAN CORPUSCULAR HEMOGLOBIN 30.6 uug (23.8-33.4); MEAN CORPUSCULAR HGB CONC 33 g/dL (32.5-36.3); MEAN CORPUSCULAR VOLUME 93.3 fL (73.0-96.2); MONOCYTES % (AUTO) 12.7 % (0.0-11.0); NEUTROPHILS # (AUTO) 4.7 K/uL (1.8-8.9); NEUTROPHILS % (AUTO) 62.3 % (38.5-71.5); PLATELET COUNT (AUTO) 354 K/uL (152-348); RED BLOOD CELL COUNT(AUTO) 2.72 MIL/uL (4.06-5.63); WHITE BLOOD COUNT (AUTO) 7.6 K/uL (3.6-10.2)
[2019-12-17 08:33] LABS: ALANINE AMINOTRANSFERASE 50 U/L (16-63); ALKALINE PHOSPHATASE 161 U/L (50-136); ASPARTATE AMINOTRANSFERASE 39 U/L (15-37); BILIRUBIN,TOTAL 0.4 mg/dL (0.2-1.0); CARBON DIOXIDE 23 mmol/L (21-32); CHLORIDE 109 mmol/L (98-107); CREATININE 2.8 mg/dL (0.6-1.3); GLUCOSE 103 mg/dL (74-106); MAGNESIUM 2.3 mg/dL (1.8-2.4); PHOSPHOROUS 4.3 mg/dL (2.5-4.9); POTASSIUM 5.1 mmol/L (3.5-5.1); TOTAL PROTEIN, SERUM 6.1 g/dL (6.4-8.2); UREA NITROGEN, BLOOD 55 mg/dL (7-18)
[2019-12-17] MEDS: DIVALPROEX 500 MG TABLET.DR PO SCH (09:00)
[2019-12-17] MEDS: CLOPIDOGREL 75 MG TABLET PO SCH (09:00)
[2019-12-17] MEDS: OMEGA-3 FATTY ACIDS/FISH OIL CAPSULE PO SCH (09:00)
[2019-12-17] MEDS: MULTIVITAMINS,THERAPEUTIC TABLET PO SCH (09:01)
[2019-12-17] MEDS: FINASTERIDE 5 MG TABLET PO SCH (09:01)
[2019-12-17] MEDS: FOLIC ACID 1 MG TABLET PO SCH (09:01)
[2019-12-17] MEDS: PANTOPRAZOLE SODIUM 40 MG TABLET.DR PO SCH (09:01)
[2019-12-17] MEDS: buPROPion XL 150 MG TAB.SR.24H PO SCH (09:01)
[2019-12-17] MEDS: TADALAFIL 5 MG PO SCH (09:05)
[2019-12-17] MEDS: ALFUZOSIN HCL 10 MG TAB.SR.24H PO SCH (09:05)
[2019-12-17] MEDS: ATENOLOL 25 MG TABLET PO SCH (09:05)
[2019-12-17] MEDS: NEPRO (VANILLA) 237 ML CAN PO SCH ×2 (09:06→17:11)
[2019-12-17] MEDS: LACTULOSE 20 G/30 ML LIQUID UDC PO PRN (14:15)
[2019-12-17 16:00] VITALS: BP 111/63
--- NOTE | 2019-12-17 18:40 | NUR ---
Patient remains alert, not in any form of distress, on room air. He denies any pain or discomfort. Patient is compliant with medications. Assisted with his needs promptly. Call light and frequently used items placed within patient's reach. Safety measures maintained.
[2019-12-17 20:00] VITALS: BP 106/66
[2019-12-17] MEDS: DIVALPROEX 250 MG TABLET.DR PO SCH (20:03)
[2019-12-17] MEDS: ATORVASTATIN 10 MG TABLET PO SCH (20:04)
--- NOTE | 2019-12-17 21:03 | NUR ---
Received pt sitting in the wheelchair. AAO x3. No acute distress noted. Denies pain/ discomfort. Due meds given as ordered. Pt assisted safely back to bed. Safety measures maintained. Call light and personal items within reach. Will continue to monitor.
[2019-12-18 04:00] VITALS: BP 103/57
[2019-12-18] MEDS: LACTULOSE 20 G/30 ML LIQUID UDC PO PRN (05:33)
[2019-12-18 07:30] VITALS: BP 125/55
[2019-12-18] MEDS: DIVALPROEX 500 MG TABLET.DR PO SCH (09:02)
[2019-12-18] MEDS: OMEGA-3 FATTY ACIDS/FISH OIL CAPSULE PO SCH (09:02)
[2019-12-18] MEDS: FOLIC ACID 1 MG TABLET PO SCH (09:03)
[2019-12-18] MEDS: ATENOLOL 25 MG TABLET PO SCH (09:03)
[2019-12-18] MEDS: buPROPion XL 150 MG TAB.SR.24H PO SCH (09:03)
[2019-12-18] MEDS: MULTIVITAMINS,THERAPEUTIC TABLET PO SCH (09:03)
[2019-12-18] MEDS: CLOPIDOGREL 75 MG TABLET PO SCH (09:03)
[2019-12-18] MEDS: PANTOPRAZOLE SODIUM 40 MG TABLET.DR PO SCH (09:03)
[2019-12-18] MEDS: FINASTERIDE 5 MG TABLET PO SCH (09:03)
[2019-12-18] MEDS: TADALAFIL 5 MG PO SCH (09:04)
[2019-12-18] MEDS: ALFUZOSIN HCL 10 MG TAB.SR.24H PO SCH (09:04)
[2019-12-18] MEDS: NEPRO (VANILLA) 237 ML CAN PO SCH ×2 (09:05→17:27)
[2019-12-18 14:13] LABS: BASOPHILS % (AUTO) 0.7 % (0.0-2.0); EOSINOPHILS # (AUTO) 0.1 K/uL (0.0-0.7); EOSINOPHILS % (AUTO) 1.3 % (0.0-7.0); HEMATOCRIT 24.3 % (36.7-47.1); LYMPHOCYTES # (AUTO) 1.7 K/uL (20.0-40.0); LYMPHOCYTES % (AUTO) 24.7 % (20.5-51.5); MEAN CORPUSCULAR HGB CONC 33 g/dL (32.5-36.3); MEAN CORPUSCULAR VOLUME 93.9 fL (73.0-96.2); MONOCYTES # (AUTO) 0.7 K/uL (2.0-10.0); MONOCYTES % (AUTO) 9.5 % (0.0-11.0); NEUTROPHILS # (AUTO) 4.5 K/uL (1.8-8.9); NEUTROPHILS % (AUTO) 63.8 % (38.5-71.5); PLATELET COUNT (AUTO) 358 K/uL (152-348); RED BLOOD CELL COUNT(AUTO) 2.59 MIL/uL (4.06-5.63); WHITE BLOOD COUNT (AUTO) 7.1 K/uL (3.6-10.2)
[2019-12-18 14:26] LABS: ALANINE AMINOTRANSFERASE 36 U/L (16-63); ALKALINE PHOSPHATASE 165 U/L (50-136); ASPARTATE AMINOTRANSFERASE 24 U/L (15-37); BILIRUBIN,TOTAL 0.3 mg/dL (0.2-1.0); CARBON DIOXIDE 20 mmol/L (21-32); CHLORIDE 107 mmol/L (98-107); CREATININE 2.8 mg/dL (0.6-1.3); GLUCOSE 110 mg/dL (74-106); MAGNESIUM 2.4 mg/dL (1.8-2.4); PHOSPHOROUS 3.7 mg/dL (2.5-4.9); POTASSIUM 4.4 mmol/L (3.5-5.1); TOTAL PROTEIN, SERUM 6.1 g/dL (6.4-8.2); UREA NITROGEN, BLOOD 59 mg/dL (7-18)
[2019-12-18 17:05] VITALS: BP 111/51
--- NOTE | 2019-12-18 19:45 | NUR ---
Awake during initial rounds, watching TV. No s/s of respiratory distress. HOB elevated. Denies any pain/discomforts at this time. Safety measures and fall prevention maintained. Continue care as planned.
[2019-12-18 20:00] VITALS: BP 116/50
[2019-12-18] MEDS: DIVALPROEX 250 MG TABLET.DR PO SCH (20:05)
[2019-12-18] MEDS: ATORVASTATIN 10 MG TABLET PO SCH (20:05)
[2019-12-19 04:00] VITALS: BP 112/54
--- NOTE | 2019-12-19 06:23 | NUR ---
Shift End Report: VS stable. Slept well. No complaint of pain/discomforts presented all night with relief. All needs attended and met. No significant event reported. Continue current rehab plan of care.
[2019-12-19 08:00] VITALS: BP 118/58
[2019-12-19] MEDS: OMEGA-3 FATTY ACIDS/FISH OIL CAPSULE PO SCH (09:06)
[2019-12-19] MEDS: FINASTERIDE 5 MG TABLET PO SCH (09:07)
[2019-12-19] MEDS: CLOPIDOGREL 75 MG TABLET PO SCH (09:07)
[2019-12-19] MEDS: PANTOPRAZOLE SODIUM 40 MG TABLET.DR PO SCH (09:07)
[2019-12-19] MEDS: FOLIC ACID 1 MG TABLET PO SCH (09:07)
[2019-12-19] MEDS: DIVALPROEX 500 MG TABLET.DR PO SCH (09:07)
[2019-12-19] MEDS: buPROPion XL 150 MG TAB.SR.24H PO SCH (09:07)
[2019-12-19] MEDS: MULTIVITAMINS,THERAPEUTIC TABLET PO SCH (09:07)
[2019-12-19] MEDS: ALFUZOSIN HCL 10 MG TAB.SR.24H PO SCH (09:08)
[2019-12-19] MEDS: ATENOLOL 25 MG TABLET PO SCH (09:08)
[2019-12-19] MEDS: TADALAFIL 5 MG PO SCH (09:08)
[2019-12-19] MEDS: NEPRO (VANILLA) 237 ML CAN PO SCH ×2 (09:09→16:21)
--- NOTE | 2019-12-19 14:40 | NUR ---
patient alert, oriented x3, forgetful, no distress noted, continue with tx to left elbow abrasion, and left rivera abrasion, no signs and symptoms of infection noted, no new skin issues noted, tolerated PT, OT services well, noted with occasional dry cough, no acute distress noted.
[2019-12-19 16:22] VITALS: BP 102/47
[2019-12-19 20:31] VITALS: BP 117/54
[2019-12-19] MEDS: DIVALPROEX 250 MG TABLET.DR PO SCH (20:33)
[2019-12-20 05:07] VITALS: BP 113/51
[2019-12-20 07:34] VITALS: BP 113/55
[2019-12-20] MEDS: buPROPion XL 150 MG TAB.SR.24H PO SCH (08:51)
[2019-12-20] MEDS: OMEGA-3 FATTY ACIDS/FISH OIL CAPSULE PO SCH (08:51)
[2019-12-20] MEDS: CLOPIDOGREL 75 MG TABLET PO SCH (08:51)
[2019-12-20] MEDS: TADALAFIL 5 MG PO SCH (08:51)
[2019-12-20] MEDS: FOLIC ACID 1 MG TABLET PO SCH (08:51)
[2019-12-20] MEDS: PANTOPRAZOLE SODIUM 40 MG TABLET.DR PO SCH (08:51)
[2019-12-20] MEDS: DIVALPROEX 500 MG TABLET.DR PO SCH (08:51)
[2019-12-20] MEDS: MULTIVITAMINS,THERAPEUTIC TABLET PO SCH (08:51)
[2019-12-20] MEDS: FINASTERIDE 5 MG TABLET PO SCH (08:51)
[2019-12-20] MEDS: ALFUZOSIN HCL 10 MG TAB.SR.24H PO SCH (08:52)
[2019-12-20] MEDS: ATENOLOL 25 MG TABLET PO SCH (08:55)
[2019-12-20] MEDS: NEPRO (VANILLA) 237 ML CAN PO SCH ×2 (09:01→17:56)
--- NOTE | 2019-12-20 18:32 | NUR ---
Patient remains alert, oriented x 3, not in any form of distress, on room air. He denies any pain or discomfort. Noted with occasional non-productive cough. Patient compliant with medications. Assisted with his needs promptly. Patient participated with PT, OT, ST services and tolerated well. Safety measures maintained. Call light and frequently used items placed within patient's reach. Patient seen by Dr. Espinoza and Dr. Ness during the shift update given with no new order.
[2019-12-20 19:49] VITALS: BP 149/66
[2019-12-20] MEDS: DIVALPROEX 250 MG TABLET.DR PO SCH (20:59)
[2019-12-21 04:41] VITALS: BP 124/61
[2019-12-21 08:21] VITALS: BP 120/60
[2019-12-21] MEDS: buPROPion XL 150 MG TAB.SR.24H PO SCH (08:26)
[2019-12-21] MEDS: MULTIVITAMINS,THERAPEUTIC TABLET PO SCH (08:26)
[2019-12-21] MEDS: PANTOPRAZOLE SODIUM 40 MG TABLET.DR PO SCH (08:26)
[2019-12-21] MEDS: OMEGA-3 FATTY ACIDS/FISH OIL CAPSULE PO SCH (08:27)
[2019-12-21] MEDS: ATENOLOL 25 MG TABLET PO SCH (08:27)
[2019-12-21] MEDS: FOLIC ACID 1 MG TABLET PO SCH (08:27)
[2019-12-21] MEDS: FINASTERIDE 5 MG TABLET PO SCH (08:27)
[2019-12-21] MEDS: DIVALPROEX 500 MG TABLET.DR PO SCH (08:27)
[2019-12-21] MEDS: CLOPIDOGREL 75 MG TABLET PO SCH (08:27)
[2019-12-21] MEDS: ALFUZOSIN HCL 10 MG TAB.SR.24H PO SCH (08:28)
[2019-12-21] MEDS: TADALAFIL 5 MG PO SCH (08:30)
[2019-12-21] MEDS: NEPRO (VANILLA) 237 ML CAN PO SCH ×2 (08:31→16:15)
--- NOTE | 2019-12-21 13:48 | NUR ---
INTERDISCIPLINARY TEAM CONFERENCE
--- NOTE | 2019-12-21 15:57 | NUR ---
NO CHANGES NOTED DURING SHIFT, KEPT CLEAN AND DRY, NO SOB, RESP EVEN NONLABORED,SKIN WARM AND DRY TO TOUCH, CONTINUE WITH PLAN OF CARE
[2019-12-21 16:00] VITALS: BP 116/56
--- NOTE | 2019-12-21 18:32 | NUR ---
medication Cialis 5mg received from family, given to pharmacy as facility protocol
[2019-12-21] MEDS: DIVALPROEX 250 MG TABLET.DR PO SCH (20:10)
[2019-12-21 20:15] VITALS: BP 106/51
--- NOTE | 2019-12-22 04:00 | NUR ---
AAOx 2-3. resting in bed upon initial round. All due meds given as scheduled. Incontinent of urine x2. Kept clean and dry No BM noted . Compliant with meds and care. Siderails up for safety. Denies any pain nor any discomfort. Will monitor patient. VSS.
[2019-12-22 05:41] VITALS: BP 119/58
--- NOTE | 2019-12-22 06:36 | NUR ---
End of shift notes: Slept well throughout the shift. Incontinent of urine. Kept clean and dry. VSS. Will monitor patient.
[2019-12-22 07:18] LABS: BASOPHILS % (AUTO) 0.4 % (0.0-2.0); EOSINOPHILS # (AUTO) 0.2 K/uL (0.0-0.7); EOSINOPHILS % (AUTO) 1.9 % (0.0-7.0); HEMATOCRIT 24.8 % (36.7-47.1); HEMOGLOBIN 8.2 g/dL (12.5-16.3); LYMPHOCYTES # (AUTO) 2.2 K/uL (20.0-40.0); MEAN CORPUSCULAR HEMOGLOBIN 31.1 uug (23.8-33.4); MEAN CORPUSCULAR HGB CONC 33 g/dL (32.5-36.3); MEAN CORPUSCULAR VOLUME 94.1 fL (73.0-96.2); MONOCYTES # (AUTO) 0.5 K/uL (2.0-10.0); NEUTROPHILS # (AUTO) 5.5 K/uL (1.8-8.9); NEUTROPHILS % (AUTO) 65.7 % (38.5-71.5); PLATELET COUNT (AUTO) 496 K/uL (152-348); RED BLOOD CELL COUNT(AUTO) 2.64 MIL/uL (4.06-5.63); WHITE BLOOD COUNT (AUTO) 8.4 K/uL (3.6-10.2)
[2019-12-22 07:40] LABS: CARBON DIOXIDE 23 mmol/L (21-32); CHLORIDE 108 mmol/L (98-107); CREATININE 2.3 mg/dL (0.6-1.3); GLUCOSE 79 mg/dL (74-106); MAGNESIUM 2.4 mg/dL (1.8-2.4); PHOSPHOROUS 3.8 mg/dL (2.5-4.9); POTASSIUM 4.8 mmol/L (3.5-5.1); UREA NITROGEN, BLOOD 37 mg/dL (7-18)
[2019-12-22 08:00] VITALS: BP 120/51
[2019-12-22] MEDS: OMEGA-3 FATTY ACIDS/FISH OIL CAPSULE PO SCH (09:46)
[2019-12-22] MEDS: DIVALPROEX 500 MG TABLET.DR PO SCH (09:46)
[2019-12-22] MEDS: FOLIC ACID 1 MG TABLET PO SCH (09:46)
[2019-12-22] MEDS: MULTIVITAMINS,THERAPEUTIC TABLET PO SCH (09:49)
[2019-12-22] MEDS: buPROPion XL 150 MG TAB.SR.24H PO SCH (09:49)
[2019-12-22] MEDS: CLOPIDOGREL 75 MG TABLET PO SCH (09:49)
[2019-12-22] MEDS: TADALAFIL 5 MG PO SCH (09:50)
[2019-12-22] MEDS: ALFUZOSIN HCL 10 MG TAB.SR.24H PO SCH (09:50)
[2019-12-22] MEDS: ATENOLOL 25 MG TABLET PO SCH (09:50)
[2019-12-22] MEDS: FINASTERIDE 5 MG TABLET PO SCH (09:50)
[2019-12-22] MEDS: NEPRO (VANILLA) 237 ML CAN PO SCH ×2 (09:51→17:16)
[2019-12-22] MEDS: PANTOPRAZOLE SODIUM 40 MG TABLET.DR PO SCH (09:54)
[2019-12-22 16:12] VITALS: BP 100/49
[2019-12-22 20:00] VITALS: BP 111/57
[2019-12-22] MEDS: DIVALPROEX 250 MG TABLET.DR PO SCH (20:04)
--- NOTE | 2019-12-22 20:47 | NUR ---
Received pt resting in bed. AAO x3-4. No acute distress noted. Denies pain/ discomfort. Due meds given as ordered. Pt had large BM, pt cleaned and kept dry. Safety measures maintained. Call light and personal items within reach. Will continue to monitor.
[2019-12-23 04:00] VITALS: BP 126/58
[2019-12-23 08:00] VITALS: BP 130/57
[2019-12-23] MEDS: CLOPIDOGREL 75 MG TABLET PO SCH (09:06)
[2019-12-23] MEDS: OMEGA-3 FATTY ACIDS/FISH OIL CAPSULE PO SCH (09:06)
[2019-12-23] MEDS: buPROPion XL 150 MG TAB.SR.24H PO SCH (09:06)
[2019-12-23] MEDS: FOLIC ACID 1 MG TABLET PO SCH (09:06)
[2019-12-23] MEDS: PANTOPRAZOLE SODIUM 40 MG TABLET.DR PO SCH (09:06)
[2019-12-23] MEDS: ATENOLOL 25 MG TABLET PO SCH (09:07)
[2019-12-23] MEDS: DIVALPROEX 500 MG TABLET.DR PO SCH (09:08)
[2019-12-23] MEDS: MULTIVITAMINS,THERAPEUTIC TABLET PO SCH (09:08)
[2019-12-23] MEDS: FINASTERIDE 5 MG TABLET PO SCH (09:08)
[2019-12-23] MEDS: ALFUZOSIN HCL 10 MG TAB.SR.24H PO SCH (09:09)
[2019-12-23] MEDS: TADALAFIL 5 MG PO SCH (09:10)
[2019-12-23] MEDS: NEPRO (VANILLA) 237 ML CAN PO SCH ×2 (09:11→17:38)
[2019-12-23 16:00] VITALS: BP 116/62
[2019-12-23 20:00] VITALS: BP 117/54
[2019-12-23] MEDS: DIVALPROEX 250 MG TABLET.DR PO SCH (20:37)
[2019-12-24 04:00] VITALS: BP 141/53
--- NOTE | 2019-12-24 04:38 | NUR ---
Resting comfortable watching TV. Axox3-4. No acute distress noted. Denies pain/ discomfort. Vitals WNL. Due medications administered as ordered. All needs attended to promptly. No significant events, no new changes. Safety measures maintained. Call light and personal items within reach. Will continue to monitor through the night.
[2019-12-24 07:30] VITALS: BP 147/63
[2019-12-24] MEDS: ALFUZOSIN HCL 10 MG TAB.SR.24H PO SCH (09:33)
[2019-12-24] MEDS: buPROPion XL 150 MG TAB.SR.24H PO SCH (09:33)
[2019-12-24] MEDS: DIVALPROEX 500 MG TABLET.DR PO SCH (09:34)
[2019-12-24] MEDS: OMEGA-3 FATTY ACIDS/FISH OIL CAPSULE PO SCH (09:34)
[2019-12-24] MEDS: MULTIVITAMINS,THERAPEUTIC TABLET PO SCH (09:34)
[2019-12-24] MEDS: FOLIC ACID 1 MG TABLET PO SCH (09:34)
[2019-12-24] MEDS: CLOPIDOGREL 75 MG TABLET PO SCH (09:34)
[2019-12-24] MEDS: FINASTERIDE 5 MG TABLET PO SCH (09:34)
[2019-12-24] MEDS: TADALAFIL 5 MG PO SCH (09:35)
[2019-12-24] MEDS: ATENOLOL 25 MG TABLET PO SCH (09:35)
[2019-12-24] MEDS: PANTOPRAZOLE SODIUM 40 MG TABLET.DR PO SCH (09:36)
[2019-12-24] MEDS: NEPRO (VANILLA) 237 ML CAN PO SCH ×2 (09:39→17:43)
--- NOTE | 2019-12-24 13:50 | NUR ---
Pt received resting in bed, assessed, AOx3-4, no acute distress, no SOB, and denies pain. Pt compliant with routine morning medications and cooperative with therapies as offered. VSS. Pt seen by no new orders at this time. All safety and comfort measures implemented. Call light and personal belongings placed within reach. Will continue to monitor.
[2019-12-24 15:51] VITALS: BP 112/58
[2019-12-24 20:00] VITALS: BP 127/63
[2019-12-24] MEDS: DIVALPROEX 250 MG TABLET.DR PO SCH (20:39)
[2019-12-25 04:00] VITALS: BP 135/54
--- NOTE | 2019-12-25 05:55 | NUR ---
No new changed noted. Patient resting comfortably in bed. No signs of distress noted. No complaints of pain. VVS. Due medications administered as ordered. All needs attended to promptly. No significant events, no new changes. Safety measures maintained. Call light and personal items within reach. Will endorse report to next shift.
[2019-12-25 06:06] LABS: BASOPHILS % (AUTO) 0.5 % (0.0-2.0); EOSINOPHILS # (AUTO) 0.2 K/uL (0.0-0.7); EOSINOPHILS % (AUTO) 1.9 % (0.0-7.0); HEMATOCRIT 25.6 % (36.7-47.1); HEMOGLOBIN 8.4 g/dL (12.5-16.3); LYMPHOCYTES % (AUTO) 24.2 % (20.5-51.5); MEAN CORPUSCULAR HEMOGLOBIN 30.7 uug (23.8-33.4); MEAN CORPUSCULAR HGB CONC 33 g/dL (32.5-36.3); MEAN CORPUSCULAR VOLUME 93.7 fL (73.0-96.2); MONOCYTES # (AUTO) 0.7 K/uL (2.0-10.0); MONOCYTES % (AUTO) 8.2 % (0.0-11.0); NEUTROPHILS # (AUTO) 5.5 K/uL (1.8-8.9); NEUTROPHILS % (AUTO) 65.2 % (38.5-71.5); PLATELET COUNT (AUTO) 469 K/uL (152-348); RED BLOOD CELL COUNT(AUTO) 2.73 MIL/uL (4.06-5.63); WHITE BLOOD COUNT (AUTO) 8.4 K/uL (3.6-10.2)
[2019-12-25 06:21] LABS: ALANINE AMINOTRANSFERASE 18 U/L (16-63); ALKALINE PHOSPHATASE 131 U/L (50-136); ASPARTATE AMINOTRANSFERASE 13 U/L (15-37); BILIRUBIN,TOTAL 0.3 mg/dL (0.2-1.0); CARBON DIOXIDE 24 mmol/L (21-32); CHLORIDE 109 mmol/L (98-107); CREATININE 2.2 mg/dL (0.6-1.3); GLUCOSE 81 mg/dL (74-106); PHOSPHOROUS 4.1 mg/dL (2.5-4.9); POTASSIUM 5.6 mmol/L (3.5-5.1); TOTAL PROTEIN, SERUM 5.9 g/dL (6.4-8.2); UREA NITROGEN, BLOOD 30 mg/dL (7-18)
[2019-12-25 07:30] VITALS: BP 133/60
[2019-12-25] MEDS: DIVALPROEX 500 MG TABLET.DR PO SCH (09:01)
[2019-12-25] MEDS: OMEGA-3 FATTY ACIDS/FISH OIL CAPSULE PO SCH (09:01)
[2019-12-25] MEDS: ATENOLOL 25 MG TABLET PO SCH (09:02)
[2019-12-25] MEDS: PANTOPRAZOLE SODIUM 40 MG TABLET.DR PO SCH (09:02)
[2019-12-25] MEDS: FOLIC ACID 1 MG TABLET PO SCH (09:02)
[2019-12-25] MEDS: FINASTERIDE 5 MG TABLET PO SCH (09:02)
[2019-12-25] MEDS: MULTIVITAMINS,THERAPEUTIC TABLET PO SCH (09:02)
[2019-12-25] MEDS: buPROPion XL 150 MG TAB.SR.24H PO SCH (09:02)
[2019-12-25] MEDS: CLOPIDOGREL 75 MG TABLET PO SCH (09:02)
[2019-12-25] MEDS: ALFUZOSIN HCL 10 MG TAB.SR.24H PO SCH (09:02)
[2019-12-25] MEDS: TADALAFIL 5 MG PO SCH (09:02)
[2019-12-25] MEDS: NEPRO (VANILLA) 237 ML CAN PO SCH ×2 (09:03→17:40)
--- NOTE | 2019-12-25 11:14 | NUR ---
Informed Dr. Espinoza regarding potassium of 5.6, ordered Kayexalate 30gm PO x 1.
[2019-12-25] MEDS ORDERED: SODIUM POLYSTYRENE SULFONATE 15 G/60 ML LIQUID UDC PO ONE (11:15)
[2019-12-25 16:00] VITALS: BP 106/50
--- NOTE | 2019-12-25 18:45 | NUR ---
Patient remains alert, oriented x 3, not in any form of distress, on room air. No complain of any pain or discomfort. Needs attended to promptly. Due medications administered and tolerated well. Patient participated with PT, OT, ST and tolerated well. Wound on left upper and left lower extremities healing well, noted to be dry, no signs of infection. Call light and frequently used items placed within patient's reach. Safety measures maintained. Will endorse accordingly to supervisor motorcycle repair shop nurse.
[2019-12-25 20:20] VITALS: BP 123/60
[2019-12-25] MEDS: DIVALPROEX 250 MG TABLET.DR PO SCH (20:38)
--- NOTE | 2019-12-25 22:00 | NUR ---
Found a left heel pressure sore, took picture of the left heel heel elevated on 2 pillows. Endorsed to next shift and check with the wound care nurse. Left heel off the bed elevated on pillows.
--- NOTE | 2019-12-26 02:17 | NUR ---
alert and oriented x2-3 no acute distress noted. VSS. Kept comfortable. Incontinent of bowel and bladder. Kept clean and dry. No BM noted this shift. All due meds given as needed. Will monitor patient.
[2019-12-26 04:42] VITALS: BP 123/60
[2019-12-26 05:56] LABS: BASOPHILS % (AUTO) 0.4 % (0.0-2.0); EOSINOPHILS # (AUTO) 0.1 K/uL (0.0-0.7); EOSINOPHILS % (AUTO) 1.7 % (0.0-7.0); HEMATOCRIT 25.8 % (36.7-47.1); HEMOGLOBIN 8.5 g/dL (12.5-16.3); LYMPHOCYTES # (AUTO) 2.2 K/uL (20.0-40.0); LYMPHOCYTES % (AUTO) 31.5 % (20.5-51.5); MEAN CORPUSCULAR HEMOGLOBIN 30.9 uug (23.8-33.4); MEAN CORPUSCULAR HGB CONC 33 g/dL (32.5-36.3); MEAN CORPUSCULAR VOLUME 93.6 fL (73.0-96.2); MONOCYTES # (AUTO) 0.6 K/uL (2.0-10.0); MONOCYTES % (AUTO) 8.6 % (0.0-11.0); NEUTROPHILS % (AUTO) 57.8 % (38.5-71.5); PLATELET COUNT (AUTO) 437 K/uL (152-348); RED BLOOD CELL COUNT(AUTO) 2.75 MIL/uL (4.06-5.63)
[2019-12-26 06:15] LABS: CARBON DIOXIDE 26 mmol/L (21-32); CHLORIDE 110 mmol/L (98-107); CREATININE 2.1 mg/dL (0.6-1.3); GLUCOSE 84 mg/dL (74-106); PHOSPHOROUS 4.4 mg/dL (2.5-4.9); POTASSIUM 5.3 mmol/L (3.5-5.1); UREA NITROGEN, BLOOD 27 mg/dL (7-18)
[2019-12-26 06:43] LABS: BAND % (MANUAL) 1 % (0-10); EOSINOPHILS % (MANUAL) 1 % (0-8); LYMPHOCYTES % (MANUAL) 25 % (20-40); METAMYELOCYTES % 2 % (0-1); MONOCYTES % (MANUAL) 7 % (2-10); MYELOCYTES % 8 % (0-0); NEUTROPHILS % (MANUAL) 55 % (42-75)
--- NOTE | 2019-12-26 06:58 | NUR ---
End of shift notes: Quiet night. Incontinent of urine x2. Kept clean and dry.Will monitor patient. Needs attended.
[2019-12-26 08:55] VITALS: BP 136/70
[2019-12-26] MEDS: NEPRO (VANILLA) 237 ML CAN PO SCH ×2 (09:00→17:00)
[2019-12-26] MEDS: OMEGA-3 FATTY ACIDS/FISH OIL CAPSULE PO SCH (09:43)
[2019-12-26] MEDS: ALFUZOSIN HCL 10 MG TAB.SR.24H PO SCH (09:43)
[2019-12-26] MEDS: TADALAFIL 5 MG PO SCH (09:43)
[2019-12-26] MEDS: CLOPIDOGREL 75 MG TABLET PO SCH (09:43)
[2019-12-26] MEDS: ATENOLOL 25 MG TABLET PO SCH (09:43)
[2019-12-26] MEDS: buPROPion XL 150 MG TAB.SR.24H PO SCH (09:43)
[2019-12-26] MEDS: MULTIVITAMINS,THERAPEUTIC TABLET PO SCH (09:44)
[2019-12-26] MEDS: PANTOPRAZOLE SODIUM 40 MG TABLET.DR PO SCH (09:44)
[2019-12-26] MEDS: DIVALPROEX 500 MG TABLET.DR PO SCH (09:44)
[2019-12-26] MEDS: FOLIC ACID 1 MG TABLET PO SCH (09:44)
[2019-12-26] MEDS: FINASTERIDE 5 MG TABLET PO SCH (09:44)
--- NOTE | 2019-12-26 12:35 | NUR ---
WOUND CARE CONSULT: PT SEEN AT REQUEST OF ANTHROPOLOGY LECTURER FOR LEFT HEEL INTACT DEEP TISSUE INJURY. RECOMMENDATIONS MADE FOR WOUND CARE AND SKIN PROTECTION. DISCUSSED WITH NURSING STAFF AND WITH PT. IN AGREEMENT WITH PLAN OF CARE. Addendum: 12/26/19 at 1240 by ОЛЬГА KONG RN LOWER LEG AND ARM SKIN TEARS ARE NOW RESOLVED. Addendum: 12/26/19 at 1241 by ОЛЬГА KONG RN Amended: Links added.
[2019-12-26 15:30] VITALS: BP 103/56
[2019-12-26 20:26] VITALS: BP 106/62
[2019-12-26] MEDS: DIVALPROEX 250 MG TABLET.DR PO SCH (20:31)
[2019-12-27 04:50] VITALS: BP 141/60
--- NOTE | 2019-12-27 06:28 | NUR ---
Quiet night. Slept well throughout the shift. No acute distress noted. VSS. Incontinent of urine. No BM noted this shift. Kept clean and dry. Bilateral heels off the bed. Repositioned for comfort. Turned to sides. Will monitor patient.
[2019-12-27] MEDS: CLOPIDOGREL 75 MG TABLET PO SCH (08:03)
[2019-12-27] MEDS: DIVALPROEX 500 MG TABLET.DR PO SCH (08:03)
[2019-12-27] MEDS: MULTIVITAMINS,THERAPEUTIC TABLET PO SCH (08:03)
[2019-12-27] MEDS: FOLIC ACID 1 MG TABLET PO SCH (08:04)
[2019-12-27] MEDS: FINASTERIDE 5 MG TABLET PO SCH (08:04)
[2019-12-27] MEDS: ATENOLOL 25 MG TABLET PO SCH (08:04)
[2019-12-27] MEDS: buPROPion XL 150 MG TAB.SR.24H PO SCH (08:04)
[2019-12-27] MEDS: TADALAFIL 5 MG PO SCH (08:05)
[2019-12-27] MEDS: ALFUZOSIN HCL 10 MG TAB.SR.24H PO SCH (08:05)
[2019-12-27] MEDS: OMEGA-3 FATTY ACIDS/FISH OIL CAPSULE PO SCH (08:05)
[2019-12-27] MEDS: NEPRO (VANILLA) 237 ML CAN PO SCH ×2 (08:08→16:27)
[2019-12-27 08:14] VITALS: BP 148/73
[2019-12-27] MEDS: PANTOPRAZOLE SODIUM 40 MG TABLET.DR PO SCH (08:50)
[2019-12-27 10:50] LABS: BASOPHILS # (AUTO) 0.1 K/uL (0.0-8.0); BASOPHILS % (AUTO) 0.8 % (0.0-2.0); EOSINOPHILS # (AUTO) 0.1 K/uL (0.0-0.7); EOSINOPHILS % (AUTO) 1.2 % (0.0-7.0); HEMATOCRIT 29.2 % (36.7-47.1); HEMOGLOBIN 9.7 g/dL (12.5-16.3); LYMPHOCYTES # (AUTO) 1.8 K/uL (20.0-40.0); LYMPHOCYTES % (AUTO) 22.7 % (20.5-51.5); MEAN CORPUSCULAR HGB CONC 33 g/dL (32.5-36.3); MEAN CORPUSCULAR VOLUME 93.8 fL (73.0-96.2); MONOCYTES # (AUTO) 0.7 K/uL (2.0-10.0); MONOCYTES % (AUTO) 8.9 % (0.0-11.0); NEUTROPHILS # (AUTO) 5.3 K/uL (1.8-8.9); NEUTROPHILS % (AUTO) 66.4 % (38.5-71.5); PLATELET COUNT (AUTO) 445 K/uL (152-348); RED BLOOD CELL COUNT(AUTO) 3.12 MIL/uL (4.06-5.63)
[2019-12-27 10:54] LABS: CARBON DIOXIDE 26 mmol/L (21-32); CHLORIDE 105 mmol/L (98-107); CREATININE 2.3 mg/dL (0.6-1.3); GLUCOSE 81 mg/dL (74-106); POTASSIUM 5.5 mmol/L (3.5-5.1); UREA NITROGEN, BLOOD 24 mg/dL (7-18)
--- NOTE | 2019-12-27 11:00 | NUR ---
waiting for patient labs results for BMP to monitor potassium levels, blood is not drawn by lab, called lab, laborer concrete paving stated they are going to draw it now, dr liriano ordered to do stat labs because patient is discharging today, by the time laborer concrete paving came to floor to draw the blood for patient, patient was taken to rehab for PT OR OT services, called rehab therapist to bring to patient back so blood can be drawn, per physical therapist name Damon, let the laborer concrete paving go down to the rehab department to draw the blood because patient agreed and said it is ok to draw his blood in the rehab department. RN instructed laborer concrete paving and rehab therapist, if patient agrees and if it is ok with laborer concrete paving. laborer concrete paving stated that she is going to try. RN even said to rehab therapist if it is not possible, patient need to be brought up for blood draw, it is important blood to be drawn in order to make decision for patient discharge and or hold the discharge. however patient was ok blood to be drawn in the rehab department.
--- NOTE | 2019-12-27 11:40 | NUR ---
held discharge today for potassium 5.5, dr crane and dr mckee made aware Addendum: 12/27/19 at 1748 by LISA BARFIELD RN RN cancelled discharge, order given by dr liriano
[2019-12-27] MEDS ORDERED: SODIUM POLYSTYRENE SULFONATE 15 G/60 ML LIQUID UDC PO ONE (11:45)
[2019-12-27 15:23] VITALS: BP 120/61
--- NOTE | 2019-12-27 15:36 | NUR ---
Kayexalate administered earlier, patient made large BM. no distress noted.
[2019-12-27] MEDS: DIVALPROEX 250 MG TABLET.DR PO SCH (20:52)
[2019-12-27 21:13] VITALS: BP 131/55
--- NOTE | 2019-12-27 21:35 | NUR ---
awake alert and oriented x3 needs attended. VSS kept comfortable. Will monitor patient. No acute distress noted Incontinent of bowel and bladder. No BM noted this shift. Kept clean and dry. Possible discharge in am. Fall precautions maintained. All due meds given. Tolerated po meds well. Siderails up for safety.
[2019-12-28 04:55] VITALS: BP 144/67
[2019-12-28 06:18] LABS: BASOPHILS % (AUTO) 0.4 % (0.0-2.0); EOSINOPHILS # (AUTO) 0.1 K/uL (0.0-0.7); EOSINOPHILS % (AUTO) 1.6 % (0.0-7.0); HEMATOCRIT 28.1 % (36.7-47.1); HEMOGLOBIN 9.3 g/dL (12.5-16.3); LYMPHOCYTES % (AUTO) 31.2 % (20.5-51.5); MEAN CORPUSCULAR HEMOGLOBIN 30.7 uug (23.8-33.4); MEAN CORPUSCULAR HGB CONC 33 g/dL (32.5-36.3); MONOCYTES # (AUTO) 0.6 K/uL (2.0-10.0); MONOCYTES % (AUTO) 8.7 % (0.0-11.0); NEUTROPHILS # (AUTO) 3.7 K/uL (1.8-8.9); NEUTROPHILS % (AUTO) 58.1 % (38.5-71.5); PLATELET COUNT (AUTO) 417 K/uL (152-348); RED BLOOD CELL COUNT(AUTO) 3.03 MIL/uL (4.06-5.63); WHITE BLOOD COUNT (AUTO) 6.4 K/uL (3.6-10.2)
--- NOTE | 2019-12-28 06:37 | NUR ---
End of shift notes: AAOx3-4 VSS. Needs attended. Incontinent of urine x2 Kept clean and dry. VSS. Possible d/c today. No distress noted. Will monitor patient. Bilateral heels off the bed, elevated on pillows. No complaints noted this shift.
[2019-12-28 06:42] LABS: CARBON DIOXIDE 27 mmol/L (21-32); CHLORIDE 106 mmol/L (98-107); CREATININE 2.1 mg/dL (0.6-1.3); GLUCOSE 90 mg/dL (74-106); MAGNESIUM 2.2 mg/dL (1.8-2.4); PHOSPHOROUS 4.9 mg/dL (2.5-4.9); POTASSIUM 4.9 mmol/L (3.5-5.1); UREA NITROGEN, BLOOD 21 mg/dL (7-18)
[2019-12-28] MEDS: OMEGA-3 FATTY ACIDS/FISH OIL CAPSULE PO SCH (08:18)
[2019-12-28] MEDS: CLOPIDOGREL 75 MG TABLET PO SCH (08:18)
[2019-12-28] MEDS: TADALAFIL 5 MG PO SCH (08:18)
[2019-12-28] MEDS: ALFUZOSIN HCL 10 MG TAB.SR.24H PO SCH (08:18)
[2019-12-28] MEDS: ATENOLOL 25 MG TABLET PO SCH (08:19)
[2019-12-28] MEDS: MULTIVITAMINS,THERAPEUTIC TABLET PO SCH (08:19)
[2019-12-28] MEDS: DIVALPROEX 500 MG TABLET.DR PO SCH (08:19)
[2019-12-28] MEDS: FINASTERIDE 5 MG TABLET PO SCH (08:19)
[2019-12-28] MEDS: FOLIC ACID 1 MG TABLET PO SCH (08:19)
[2019-12-28] MEDS: PANTOPRAZOLE SODIUM 40 MG TABLET.DR PO SCH (08:20)
[2019-12-28] MEDS: buPROPion XL 150 MG TAB.SR.24H PO SCH (08:20)
[2019-12-28] MEDS: NEPRO (VANILLA) 237 ML CAN PO SCH (08:20)
[2019-12-28 08:21] VITALS: BP 145/66
--- NOTE | 2019-12-28 10:53 | NUR ---
WOUND CARE FOLLOW UP: PT SEEN FOR LEFT HEEL INTACT DEEP TISSUE INJURY WHICH IS NOW SMALLER IN SIZE. NO DRAINAGE NOTED. RECOMMENDATIONS MADE FOR WOUND CARE AND SKIN PROTECTION. DISCUSSED WITH NURSING STAFF. MD IN AGREEMENT WITH PLAN OF CARE.
--- NOTE | 2019-12-28 14:40 | NUR ---
patient discharged home with her caregiver John, stable condition, no sob, resp even nonlabored, skin warm and dry to touch, abrasions on left elbow, left rivera resolved, discoloration to left foot, and right shoulder, left hand. belongings accounted and signed, sent with patient, discharge instructions given to patient in person and to caregiver john on the phone, made aware about two upcoming appointments, with oncology on 01/01/20 at 8am, and with dr gale on 01/04/2020 at 2pm, patient and caregiver verbalized understanding of it. patient left heel DTI is intact, no discharge noted, no odor noted, dressing intact as ordered, seems resolving. no other skin issues noted, coccyx area is free from any skin issues, right heel skin is intact, no complications or skin issues noted at right heel. patient denied any pain at left heel. safely transported to the car. ID band removed, no IV access noted. patient left over medication from pharmacy sent home with patient.
== END 2019-12-28 14:30 | disposition home health service (06) | DRG 180 ==
PROVIDERS: ADMIT Physical Medicine & Rehabilitation Pain Medicine; ATTEND Physical Medicine & Rehabilitation Pain Medicine
DX: C34.11 Malignant neoplasm of upper lobe, right bronchus or lung (principal); E43 Unspecified severe protein-calorie malnutrition; G92 Toxic encephalopathy; N17.0 Acute kidney failure with tubular necrosis; C79.9 Secondary malignant neoplasm of unspecified site; C34.32 Malignant neoplasm of lower lobe, left bronchus or lung; S22.39XD Fracture of one rib, unspecified side, subsequent encounter for fracture with routine healing; S37.012D Minor contusion of left kidney, subsequent encounter; S41.112D Laceration without foreign body of left upper arm, subsequent encounter; R29.6 Repeated falls; R35.0 Frequency of micturition; W19.XXXD Unspecified fall, subsequent encounter; D50.9 Iron deficiency anemia, unspecified; E78.5 Hyperlipidemia, unspecified; I12.9 Hypertensive chronic kidney disease with stage 1 through stage 4 chronic kidney disease, or unspecified chronic kidney disease; N18.9 Chronic kidney disease, unspecified; N40.1 Benign prostatic hyperplasia with lower urinary tract symptoms; S81.812D Laceration without foreign body, left lower leg, subsequent encounter; E87.5 Hyperkalemia; F39 Unspecified mood [affective] disorder; I25.10 Atherosclerotic heart disease of native coronary artery without angina pectoris; I67.2 Cerebral atherosclerosis; I70.202 Unspecified atherosclerosis of native arteries of extremities, left leg; Z87.891 Personal history of nicotine dependence; Z87.820 Personal history of traumatic brain injury; Z95.5 Presence of coronary angioplasty implant and graft; M19.90 Unspecified osteoarthritis, unspecified site; M20.40 Other hammer toe(s) (acquired), unspecified foot; E86.1 Hypovolemia; R19.5 Other fecal abnormalities; E66.9 Obesity, unspecified; Z68.27 Body mass index [BMI] 27.0-27.9, adult; N28.9 Disorder of kidney and ureter, unspecified
CPT/HCPCS: 36415; 70030-TC; 71045; 83550; 83735; 84100; 85025; J3490; J8499